=== PATIENT | female | born 1965 | race Caucasian/White ===

== ENCOUNTER 2023-08-18 19:30 | Emergency (ER) | payer OTHER ==
[~2023-08-18] VITALS: Ht 157.5 cm; Wt 73.0 kg
[2023-08-18 19:47] VITALS: O2SAT 98
[2023-08-18] MEDS ORDERED: TETRACAINE 0.5% OPHTH DROPS 4ML BOTHEYE ONE (20:15)
[2023-08-18] MEDS ORDERED: FLUORESCEIN SODIUM 1MG/STRIP BOTHEYE ONE (20:15)
[2023-08-18] MEDS: ACETAMINOPHEN 325MG TABLET PO STA (21:00)
[2023-08-18] MEDS ORDERED: CIPR2.5D20 EACHEYE (21:37)
[2023-08-18] MEDS ORDERED: NAPR-681 MT (21:37)
[2023-08-18 22:40] VITALS: BP 162/92; PULSE 69; RESP 16; TEMP 98.1
== END 2023-08-18 22:47 | disposition home or self-care (01) ==
LOC: ER 19:30
DX: H10.33 Unspecified acute conjunctivitis, bilateral (principal)
CPT/HCPCS: 99283

== ENCOUNTER 2023-08-22 12:41 | Emergency (ER) | payer OTHER ==
[~2023-08-22] VITALS: Ht 160 cm; Wt 65.0 kg
[~2023-08-22 12:41] MED LIST: CIPR2.5D20 EACHEYE; NAPR-681 MT
[2023-08-22 12:50] VITALS: BP 167/115; PULSE 89; RESP 20; TEMP 98.4; O2SAT 98
== END 2023-08-22 16:03 | disposition home or self-care (01) ==
LOC: ER 12:41
DX: H57.10 Ocular pain, unspecified eye (principal)
CPT/HCPCS: 99281; 99282